=== PATIENT | female | born 1955 | race Two or more races ===

== ENCOUNTER → 2024-07-20 | Outpatient (CLI) | payer BC, SELFPAY ==
[2024-07-20 10:35] LABS: Collection Type, Urine Clean Catch
[2024-07-20 11:20] LABS: Basophils # (Auto) 0.1 Thou/mm3 (0.0-0.2); Basophils % (Auto) 1 % (0-2.5); Eosinophils % (Auto) 1 % (0-10); Hematocrit 39.2 % (36.0-46.0); Hemoglobin 13.2 g/dL (12.0-16.0); Immature Granulocytes % (Auto) 0 % (0-0); Immature Granulocytes Auto 0.01 Thou/mm3 (0.00-0.00); Lymphocytes # (Auto) 2.7 Thou/mm3 (1.0-4.8); Lymphocytes % (Auto) 54 % (10-50); Mean Corpuscular HGB Conc 33.7 g/dl (31.0-37.0); Mean Corpuscular Hemoglobin 28.4 pg (25.0-35.0); Mean Corpuscular Volume 85 fL (80-100); Monocytes # (Auto) 0.4 Thou/mm3 (0.0-0.8); Monocytes % (Auto) 7 % (0-12); Neutrophils # (Auto) 1.8 Thou/mm3 (1.8-7.7); Neutrophils % (Auto) 37 % (37-80); Nucleated Red Blood Cell % 0 /100 WBC (0); Platelet Count 275 Thou/mm3 (140-440); RDW Standard Deviation 38.9 fL (36.4-46.3); Red Blood Count 4.64 Miln/mm3 (4.00-5.20)
[2024-07-20 11:34] LABS: Glucose Estimated Average 111 mg/dL (80-131); Hemoglobin A1C 5.5 % Hgb (4.8-6.0)
[2024-07-20 11:41] LABS: Vitamin B12 1252 pg/mL (211-911)
[2024-07-20 11:42] LABS: Alanine Aminotransferase 15 U/L (10-49); Albumin, Serum 4.5 gm/dL (3.4-4.8); Albumin/Globulin Ratio 1.8 (1.2-2.2); Alkaline Phosphatase 88 U/L (46-116); Anion Gap 5 (7-16); Aspartate Amino Transferase 18 U/L (0-34); BUN/Creatinine Ratio 23 Ratio (12-20); Bilirubin,Total 0.6 mg/dL (0.3-1.2); Blood Urea Nitrogen 18 mg/dL (9-23); Calcium 9.8 mg/dL (8.3-10.6); Calcium (Corrected) 9.8 mg/dL (8.5-10.1); Carbon Dioxide 27.6 mMol/L (20.0-31.0); Cardiac Risk Estimate 4.6 RATIO (3.7-5.6); Chloride 106 mMol/L (98-107); Cholesterol 224 mg/dL (132-200); Creatinine (Component) 0.8 mg/dL (0.6-1.3); Globulin 2.5 gm/dL (2.3-3.5); Glucose 99 mg/dL (74-106); HDL Cholesterol 49 mg/dL (40-60); LDL Cholesterol,Calculated 150 mg/dL (0-130); Magnesium 2.1 mg/dL (1.6-2.6); Osmolality,Calculated 279 (275-295); Sodium 139 mMol/L (136-145); Thyroid Stimulating Hormone 2.73 uIU/mL (0.55-4.78); Triglycerides 127 mg/dL (30-150); eGFR > 60 See Note
[2024-07-20 12:49] LABS: Bilirubin,Urine Negative (Negative); Blood,Urine Negative (Negative); Clarity,Urine Clear (Clear/Hazy); Color,Urine Colorless (Lt Yel-Yel); Culture Indicated,Urine Not Indicated; Glucose, Urine Negative (Negative); Ketones,Urine Negative (Negative); Leukocyte Esterase,Urine Positive (Negative); Nitrite,Urine Negative (Negative); Protein,Urine Negative (Neg - Trace); RBC,Urine 1 /hpf (0-3); Specific Gravity,Urine 1.011 (1.001-1.035); Squamous Epithelial Cell,Urine < 1 /hpf (0-5); Urobilinogen,Urine Negative mg/dL (0.0-1.0); WBC,Urine 4 /hpf (0-5)
== END | disposition home or self-care (01) ==
LOC: COPL 09:28
PROVIDERS: PCP Registered Nurse; Referring Provider Registered Nurse; Visit Provider Registered Nurse
DX: Z00.00 Encounter for general adult medical examination without abnormal findings (principal); E78.2 Mixed hyperlipidemia; M81.0 Age-related osteoporosis without current pathological fracture
CPT/HCPCS: 36415; 80053; 80061; 81001; 82306; 82607; 83036; 83735; 84443; 85025

== ENCOUNTER 2024-11-01 02:58 | Emergency (ER) | payer BC, SELFPAY ==
[2024-11-01 03:00] VITALS: BMI 23.2
[2024-11-01 03:08] VITALS: BP 191/92; PULSE 66; RESP 19; TEMP 36.9; O2SAT 98
--- NOTE | 2024-11-01 03:32 | PD.EDRME ---
Rapid Medical Screening Exam RME Arrival date/time: 11/01/24 02:58 69-year-old female with past medical history of chronic back pain on tramadol presents emergency department complaining of thoracic back pain for several days. Chief Complaint: Back Pain/Injury Time Seen by Provider: 11/01/24 03:13 Vital signs: Vital Signs Temperature 98.4 F 11/01/24 03:08 Pulse Rate 66 11/01/24 03:08 Respiratory Rate 19 11/01/24 03:08 Blood Pressure 191/92 H 11/01/24 03:08 Pulse Oximetry (%) 98 11/01/24 03:08 Oxygen Delivery Method Room Air 11/01/24 03:08 Vital signs reviewed by provider: Yes
[2024-11-01] MEDS: CYCLObenzaPRINE 5 MG TABLET PO (03:41)
[2024-11-01] MEDS: KETOROLAC INJ 60 MG/2 ML VIAL 30 MG IM (03:42)
[2024-11-01 03:49] LABS: Collection Type, Urine Clean Catch
[2024-11-01 03:52] LABS: Bilirubin,Urine Negative (Negative); Blood,Urine Negative (Negative); Clarity,Urine Clear (Clear/Hazy); Color,Urine Colorless (Lt Yel-Yel); Culture Indicated,Urine Not Indicated; Glucose, Urine Negative (Negative); Ketones,Urine Negative (Negative); Leukocyte Esterase,Urine Positive (Negative); Nitrite,Urine Negative (Negative); Protein,Urine Negative (Neg - Trace); RBC,Urine 1 /hpf (0-3); Specific Gravity,Urine 1.008 (1.001-1.035); Squamous Epithelial Cell,Urine < 1 /hpf (0-5); Urobilinogen,Urine Negative mg/dL (0.0-1.0); WBC,Urine 7 /hpf (0-5)
--- NOTE | 2024-11-01 04:31 | PD.EDBACK ---
ED Back Injury Pain RME/HPI General Chief Complaint: Back Pain/Injury Stated Complaint: back pain Time Seen by Provider: 11/01/24 03:13 Arrival date/time: 11/01/24 02:58 69-year-old female with past medical history of chronic back pain on tramadol presents emergency department complaining of thoracic back pain for several days. Patient denies any recent trauma, fall, or injury. Patient also denies any fever, chills, bowel or bladder dysfunction, saddle anesthesia, or any other associated symptom. Limitations: no limitations RME / HPI RME / HPI Narrative: 11/01/24 02:58 69-year-old female with past medical history of chronic back pain on tramadol presents emergency department complaining of thoracic back pain for several days. Related Data Home Medications ?Medication ?Instructions ?Recorded ?Confirmed tramadol 50 mg tablet 50 mg PO QID PRN Pain, Moderate 10/22/18 10/17/23 Previous Rx's ?Medication ?Instructions ?Recorded cyclobenzaprine 10 mg tablet 10 mg PO TID PRN muscle spasm #10 11/01/24 tabs ibuprofen 600 mg tablet 600 mg PO Q8H PRN pain #20 tabs 11/01/24 Allergies Allergy/AdvReac Type Severity Reaction Status Date / Time No Known Allergies Allergy Verified 10/17/23 11:22 Review of Systems Review of Systems Systems Reviewed: All systems reviewed, normal except as documented Constitutional Constitutional: Reports system reviewed and no additional complaints, except as documented, Denies body ache(s), Denies chills and Denies fever(s) Eyes Eyes: Reports system reviewed and no additional complaints, except as documented and Denies change in vision ENT Ears, Nose, Mouth, and Throat: Reports system reviewed and no additional complaints, except as documented, Denies disequilibrium, Denies dizziness, Denies sore throat and Denies vertigo Cardiovascular Cardiovascular: Reports system reviewed and no additional complaints, except as documented, Denies chest pain and Denies dyspnea Respiratory Respiratory: Reports system reviewed and no additional complaints, except as documented, Denies chest congestion, Denies cough and Denies dyspnea Gastrointestinal Gastrointestinal: Reports system reviewed and no additional complaints, except as documented, Denies abdominal pain, Denies nausea and Denies vomiting Musculoskeletal Musculoskeletal: Reports system reviewed and no additional complaints, except as documented, Denies abnormal gait, Denies arthralgias and Reports back pain Integumentary/Breasts Skin/Breast: Reports system reviewed and no additional complaints, except as documented, Denies erythema, Denies rash and Denies wounds Neurologic Neurologic: Reports system reviewed and no additional complaints, except as documented, Denies abnormal gait, Denies disequilibrium, Denies dizziness and Denies vertigo Past Medical History Past Medical History NEUROLOGIC: Positive Neurological Disorders and Migraine (hx of migraines); Negative Seizures CARDIAC: Positive Cardiac Disorders, Hypercholesterolemia and Hypertension; Negative Congestive Heart Failure RESPIRATORY: Positive Sleep Apnea; Negative Chronic Obstructive Pulmonary Disease (COPD) or Asthma GASTROINTESTINAL: Positive Gastrointestinal Disorders and Gastroesophageal Reflux Disease GENITOURINARY: Positive Genitourinary Disorders (over active bladder); Negative Renal Disease REPRODUCTIVE: Positive Previous Pregnancies MUSCULOSKELETAL: Positive Musculoskeletal Disorders, Arthritis and Degenerative Disk Disease ENDOCRINE: Negative Endocrine Disorders, Diabetes Mellitus Type 1 or Diabetes Mellitus Type 2 HEMATOLOGIC: Negative Blood Disorders, Anemia or Sickle Cell Disease PSYCHO/SOCIAL: Positive Depression and Anxiety OTHER HISTORY: Negative Hospitalization, Falls, Blood Transfusions, Anesthesia Reactions or Cancer Surgical History SURGICAL: Positive Tubal Ligation Social History SMOKING STATUS: Never smoker SUBSTANCE USE: does not use ED Exam General Limitations: Present no limitations General appearance: Present alert and in no apparent distress Head Head exam: Present atraumatic Eye Eye exam: Present normal appearance, PERRL and EOMI ENT ENT exam: Present normal exam, normal oropharynx and mucous membranes moist Neck Neck exam: Present normal inspection, full ROM and trachea midline Chest Chest inspection: Present normal inspection and symmetric chest wall rise Respiratory Respiratory exam: Present normal lung sounds bilaterally Cardiovascular Cardiovascular exam: Present regular rate, normal rhythm and normal heart sounds Abdominal Exam Abdominal exam: Present soft and normal bowel sounds Extremities Exam Extremities exam: Present normal inspection and full ROM Back Exam Back exam: Present normal inspection and full ROM; Absent CVA tenderness (R) or CVA tenderness (L) Neurological Exam Neurological exam: Present alert, oriented X3 and CN II-XII intact Psychiatric Psychiatric exam: Present normal affect and normal mood Skin Skin exam: Present warm, dry, intact and normal color Course Quality Measures none Orders Category Date Time Status Urinalysis, C/S if Indicated Stat Lab 11/01/24 03:45 Completed CYCLObenzaPRINE [Flexeril] Med 11/01/24 03:32 Discontinued 5 mg PO X1 ONE Ketorolac Inj [Toradol Inj] Med 11/01/24 03:32 Discontinued 30 mg IM X1 ONE hydrALAZINE HCL [Apresoline] Med 11/01/24 04:48 Discontinued 25 mg PO X1 ONE Vital Signs Vital signs: Vital Signs Temperature 98.4 F 11/01/24 03:08 Pulse Rate 66 11/01/24 03:08 Respiratory Rate 19 11/01/24 03:08 Blood Pressure 191/92 H 11/01/24 03:08 Pulse Oximetry (%) 98 11/01/24 03:08 Oxygen Delivery Method Room Air 11/01/24 03:08 98% room air within normal limits. Back Pain / Injury MDM Narrative MDM Narrative:: 69-year-old female with past medical history of chronic back pain on tramadol presents emergency department complaining of thoracic back pain for several days. Patient denies any recent trauma, fall, or injury. Patient also denies any fever, chills, bowel or bladder dysfunction, saddle anesthesia, or any other associated symptom. Patient denies any flank pain with no costovertebral tenderness and negative Coto's punch. Urinalysis unremarkable. Patient reported significant improvement in pain after given Toradol and muscle relaxer. Patient has full active range of motion to bilateral upper and lower extremities. Patient ambulatory with steady gait. Patient stable for discharge struck to follow-up with primary care provider request referral to physical therapy or MRI of spine if symptoms persist. Patient data External records reviewed:: [facility] previous records Clinical information provided by:: patient Social determinants that could affect healthcare access:: none Patient has the following chronic illnesses:: See chart How is presenting disease/condition affected by chronic disease/condition?: exacerbated by Evaluation data The following diagnostics were reviewed and interpreted by me:: lab results Lab and/or radiology exams considered but not ordered:: Ordered Interpretation Summary: Interpreted by me Medications / Prescriptions Medications or Prescriptions considered but not ordered:: Ordered Medication administrations:: Medication Administration History Discontinued Medications Cyclobenzaprine HCl (Cyclobenzaprine 5 Mg Tablet) 5 mg PO X1 ONE Stop: 11/01/24 03:33 Last Admin: 11/01/24 03:41 Dose: 5 mg Documented By: EF Hydralazine HCl (Hydralazine Hcl 25 Mg Tablet) 25 mg PO X1 ONE Stop: 11/01/24 04:49 Last Admin: 11/01/24 04:53 Dose: 25 mg Documented By: EF Ketorolac Tromethamine (Ketorolac Inj 60 Mg/2 Ml Vial) 30 mg IM X1 ONE Stop: 11/01/24 03:33 Last Admin: 11/01/24 03:42 Dose: 30 mg Documented By: EF Given Consultations Consultation(s) initiated? (list below): No Diagnosis Differential diagnosis back pain/injury: lumbar radiculopathy, sciatica, strain of lumbar region, renal colic, pyelonephritis, thoracic back pain, AAA and discitis Most likely diagnosis given after review of the tests above:: Thoracic back pain Admission Indicated Admission indicated?: not indicated Admission Request Was there a request for admission?: No Disposition Plan Disposition Plan: Discharge Discharge Attestation Discharge Attestation: The patient and all family members were given an opportunity to ask questions and understood the discharge instructions. Discharge instructions specifically effects, indications for sooner follow up or return to the emergency department, and the expected course of current diagnosis. Patient condition: Stable Discharge Plan Plan Patient Disposition: HOME (Self Care) Disposition Comment: Stable Prescriptions/Referrals Prescriptions/Med Rec: New cyclobenzaprine 10 mg tablet 10 mg PO TID PRN (Reason: muscle spasm) Qty: 10 0RF ibuprofen 600 mg tablet 600 mg PO Q8H PRN (Reason: pain) Qty: 20 0RF No Action tramadol 50 mg Tablet 50 mg PO QID PRN (Reason: Pain, Moderate) Referrals: Gaby Lanier MD [Primary Care Provider] - In 1 week Problem List Clinical Impression: Thoracic back pain Patient/Caregiver Discharge Instructions Discharge Activity: activity as tolerated Education Materials: Anatomy of a Normal Spine, Back Basics: A Healthy Spine Additional Instructions: Avoid using tramadol while taking the muscle relaxer. Take ibuprofen and muscle relaxer as prescribed instead. Follow-up with primary care provider in 2 to 3 days and request referral physical therapy or MRI of spine if symptoms persist. Return to emergency department for any worsening symptoms or as needed. Print Language: [place] Stand Alone Forms: Yamila Award Info., Patient Portal Info Letter JOSR/GENARO Supervising Physician JOSR/GENARO Supervising Physician: Dr. Mroaes
[2024-11-01 04:53] VITALS: BP 209/91; PULSE 66
[2024-11-01] MEDS: hydrALAZINE HCL 25 MG TABLET PO (04:53)
[2024-11-01 05:19] VITALS: BP 162/70; PULSE 60; RESP 18; TEMP 37; O2SAT 97
== END 2024-11-01 05:26 | disposition home or self-care (01) ==
PROVIDERS: Emergency Provider Emergency Medicine; PCP Family Medicine
DX: M54.6 Pain in thoracic spine (principal); I10 Essential (primary) hypertension
CPT/HCPCS: 81001; 96372; 99283; J1885; A9270

== ENCOUNTER 2024-11-03 05:30 | Emergency (ER) | payer BC, SELFPAY ==
[2024-11-03 05:31] VITALS: BMI 23.2
--- NOTE | 2024-11-03 05:33 | EKG_ITS ---
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
--- NOTE | 2024-11-03 05:42 | XR_ITS ---
Examination: PA chest single view TECHNIQUE: Upright PA chest single view Exam date and time: November 03, 2024 0550 hours Comparison October 20, 2018 INDICATIONS: Chest pain several days FINDINGS: Normal heart size Mild accentuation basilar bronchovascular markings No pulmonary edema or pneumonia Moderate osteopenia IMPRESSION: Basilar bronchitis pattern
--- NOTE | 2024-11-03 05:43 | PD.EDRME ---
Rapid Medical Screening Exam E Arrival date/time: 11/03/24 05:30 69F with no significant PMH presents to ED with several days of worse than usual upper back pain w/o fall/trauma. Patient was here 2 days ago for this and states pain meds helped for about 24 hours, but then came back. Chief Complaint: Back Pain/Injury
[2024-11-03 05:55] VITALS: BP 208/100; PULSE 69; RESP 16; TEMP 36.7; O2SAT 97
[2024-11-03] MEDS: HYDROcodone/APAP 5/325 TABLET 1 TAB PO (06:04)
[2024-11-03 06:43] VITALS: BP 208/100; PULSE 69
[2024-11-03] MEDS: cloNIDine HCL 0.1 MG TABLET 0.2 MG PO (06:43)
[2024-11-03 07:06] LABS: Basophils # (Auto) 0.1 Thou/mm3 (0.0-0.2); Basophils % (Auto) 1 % (0-2.5); Eosinophils % (Auto) 1 % (0-10); Hematocrit 40.6 % (36.0-46.0); Hemoglobin 13.8 g/dL (12.0-16.0); Immature Granulocytes % (Auto) 0 % (0-0); Immature Granulocytes Auto 0.01 Thou/mm3 (0.00-0.00); Lymphocytes # (Auto) 2.8 Thou/mm3 (1.0-4.8); Lymphocytes % (Auto) 48 % (10-50); Mean Corpuscular Hemoglobin 28.6 pg (25.0-35.0); Mean Corpuscular Volume 84 fL (80-100); Monocytes # (Auto) 0.4 Thou/mm3 (0.0-0.8); Monocytes % (Auto) 7 % (0-12); Neutrophils # (Auto) 2.5 Thou/mm3 (1.8-7.7); Neutrophils % (Auto) 43 % (37-80); Nucleated Red Blood Cell % 0 /100 WBC (0); Platelet Count 250 Thou/mm3 (140-440); RDW Standard Deviation 38.1 fL (36.4-46.3); Red Blood Count 4.82 Miln/mm3 (4.00-5.20); White Blood Count 5.8 Thou/mm3 (3.6-11.0)
[2024-11-03 07:29] LABS: Alanine Aminotransferase 21 U/L (10-49); Albumin, Serum 4.8 gm/dL (3.4-4.8); Albumin/Globulin Ratio 1.6 (1.2-2.2); Alkaline Phosphatase 98 U/L (46-116); Anion Gap 8 (7-16); Aspartate Amino Transferase 23 U/L (0-34); BUN/Creatinine Ratio 19 Ratio (12-20); Bilirubin,Total 0.4 mg/dL (0.3-1.2); Blood Urea Nitrogen 15 mg/dL (9-23); Calcium 10.2 mg/dL (8.3-10.6); Calcium (Corrected) 10.2 mg/dL (8.5-10.1); Carbon Dioxide 28.4 mMol/L (20.0-31.0); Chloride 108 mMol/L (98-107); Creatinine (Component) 0.8 mg/dL (0.6-1.3); Estimated Creatinine Clearance 52.5 mL/min (>60); Glucose 118 mg/dL (74-106); Osmolality,Calculated 288 (275-295); Potassium 4.2 mMol/L (3.4-5.1); Sodium 144 mMol/L (136-145); Total Protein 7.8 gm/dL (5.7-8.2); Troponin I < 0.002 ng/mL (0.0-0.045); eGFR > 60 See Note
--- NOTE | 2024-11-03 07:48 | EDNOTE_ITS ---
ED Back Injury Pain RME/HPI General Chief Complaint: Back Pain/Injury Stated Complaint: BACK PAIN Time Seen by Provider: 11/03/24 06:21 Source: patient Arrival date/time: 11/03/24 05:30 69-year-old female with a history of chronic back pain presents to the emergency room with a chief complaint of upper back pain x 1 day. Patient denies any fall or trauma. Mode of arrival: ambulatory Limitations: no limitations RME / HPI RME / HPI Narrative: 11/03/24 05:30 69F with no significant PMH presents to ED with several days of worse than usual upper back pain w/o fall/trauma. Patient was here 2 days ago for this and states pain meds helped for about 24 hours, but then came back. Related Data Home Medications ?Medication ?Instructions ?Recorded ?Confirmed tramadol 50 mg tablet 50 mg PO QID PRN Pain, Moder ate 10/22/18 10/17/23 Previous Rx's ?Medication ?Instructions ?Recorded cyclobenzaprine 10 mg tablet 10 mg PO TID PRN muscle s pasm #10 11/01/24 tabs ibuprofen 600 mg tablet 600 mg PO Q8H PRN pain #20 t abs 11/01/24 Allergies Allergy/AdvReac Type Severity Reaction Status Date / Time No Known Allergies Allergy Verified 10/17/23 11:22 Review of Systems Review of Systems Systems Reviewed: All systems reviewed, normal except as documented Constitutional Constitutional: Reports system reviewed and no additional complaints, except as documented, Denies fatigue, Denies fever(s), Denies headache(s) and Denies weakness Eyes Eyes: Reports system reviewed and no additional complaints, except as documented, Denies blurry vision and Denies change in vision ENT Ears, Nose, Mouth, and Throat: Reports system reviewed and no additional complaints, except as documented, Denies otalgia, Denies headache(s), Denies nasal congestion, Denies throat swelling and Denies vertigo Cardiovascular Cardiovascular: Reports system reviewed and no additional complaints, except as documented, Denies chest pain, Denies dyspnea and Denies dyspnea on exertion Respiratory Respiratory: Reports system reviewed and no additional complaints, except as documented, Denies chest congestion, Denies cough, Denies dyspnea, Denies dyspnea on exertion and Denies wheezing Gastrointestinal Gastrointestinal: Reports system reviewed and no additional complaints, except as documented, Denies abdominal pain, Denies cramping, Denies nausea and Denies vomiting Genitourinary Genitourinary: Reports system reviewed and no additional complaints, except as documented Musculoskeletal Musculoskeletal: Reports system reviewed and no additional complaints, except as documented, Reports arthralgias and Reports back pain Integumentary/Breasts Skin/Breast: Reports system reviewed and no additional complaints, except as documented and Denies wounds Neurologic Neurologic: Reports system reviewed and no additional complaints, except as documented, Denies confusion, Denies headache(s), Denies lack of coordination, Denies vertigo and Denies weakness Psychiatric Psychiatric: Reports system reviewed and no additional complaints, except as documented, Denies anxiety, Denies confusion, Denies depression, Denies paranoia, Denies suicidal ideation and Denies tactile hallucinations Endocrine Endocrine: Reports system reviewed and no additional complaints, except as documented and Denies fatigue Hematologic/Lymphatic Hematologic/Lymphatic: Reports system reviewed and no additional complaints, except as documented and Denies lymphadenopathy Allergic/Immunologic Allergic/Immunologic: Reports system reviewed and no additional complaints, except as documented, Denies throat swelling, Denies urticaria and Denies wheezing Past Medical History Past Medical History NEUROLOGIC: Positive Neurological Disorders and Migraine (hx of migraines); Negative Seizures CARDIAC: Positive Cardiac Disorders, Hypercholesterolemia and Hypertension; Negative Congestive Heart Failure RESPIRATORY: Positive Sleep Apnea; Negative Chronic Obstructive Pulmonary Disease (COPD) or Asthma GASTROINTESTINAL: Positive Gastrointestinal Disorders and Gastroesophageal Reflux Disease GENITOURINARY: Positive Genitourinary Disorders (over active bladder); Negative Renal Disease REPRODUCTIVE: Positive Previous Pregnancies MUSCULOSKELETAL: Positive Musculoskeletal Disorders, Arthritis and Degenerative Disk Disease ENDOCRINE: Negative Endocrine Disorders, Diabetes Mellitus Type 1 or Diabetes Mellitus Type 2 HEMATOLOGIC: Negative Blood Disorders, Anemia or Sickle Cell Disease PSYCHO/SOCIAL: Positive Depression and Anxiety OTHER HISTORY: Negative Hospitalization, Falls, Blood Transfusions, Anesthesia Reactions or Cancer Surgical History SURGICAL: Positive Tubal Ligation Social History SMOKING STATUS: Never smoker SUBSTANCE USE: does not use ED Exam General Limitations: Present no limitations General appearance: Present alert and in no apparent distress Head Head exam: Present atraumatic Eye Eye exam: Present normal appearance, PERRL and EOMI ENT ENT exam: Present normal exam, normal oropharynx and mucous membranes moist Neck Neck exam: Present normal inspection, full ROM and trachea midline Chest Chest inspection: Present normal inspection and symmetric chest wall rise Respiratory Respiratory exam: Present normal lung sounds bilaterally Cardiovascular Cardiovascular exam: Present regular rate, normal rhythm and normal heart sounds Abdominal Exam Abdominal exam: Present soft and normal bowel sounds Extremities Exam Extremities exam: Present normal inspection and full ROM Back Exam Back exam: Present normal inspection, full ROM, tenderness and vertebral tenderness Back 1 view image: 2 1. Tenderness Neurological Exam Neurological exam: Present alert, oriented X3, CN II-XII intact, normal gait and reflexes normal Expanded Neurological Exam Patient oriented to: Present person, place and time Speech: Present fluid speech Cerebellar function: Present normal gait Motor strength - LUE: 5/5 Motor strength - RUE: 5/5 Motor strength - LLE: 5/5 Motor strength - RLE: 5/5 Coma scale eye opening: spontaneous Coma scale motor response: obeys commands Coma scale verbal response: oriented Coma scale total: 15 Psychiatric Psychiatric exam: Present normal affect and normal mood Skin Skin exam: Present warm, dry, intact and normal color Course Quality Measures none Orders Category Date Time Status EKG (ED ONLY) *Do not use* NOW Care 11/03/24 05:33 Completed EKG (ED Only) Stat Exams 11/03/24 05:33 Draft XR chest 1V portable Stat Exams 11/03/24 05:42 Taken CBC Stat Lab 11/03/24 06:55 Completed Comprehensive Metabolic Panel Stat Lab 11/03/24 06:55 Completed Troponin I Stat Lab 11/03/24 06:55 Completed HYDROcodone*/APAP 5/325 [Hegins 5/325] Med 11/03/24 05:42 Discontinued 1 tab PO X1 ONE cloNIDine HCL [Catapres] Med 11/03/24 06:33 Discontinued 0.2 mg PO X1 ONE Vital Signs Vital signs: Vital Signs Temperature 98.0 F 11/03/24 05:55 Pulse Rate 69 11/03/24 05:55 Respiratory Rate 16 11/03/24 05:55 Blood Pressure 208/100 H 11/03/24 05:55 Pulse Oximetry (%) 97 11/03/24 05:55 Oxygen Delivery Method Room Air 11/03/24 05:55 O2 saturation 97% on room air Back Pain / Injury MDM Narrative MDM Narrative:: 69-year-old female with a history of chronic back pain presents to the emergency room with a chief complaint of upper back pain x 1 day. Patient denies any fall or trauma. Patient is hemodynamically stable and in no apparent distress. Patient was hypertensive during initial evaluation. Medication was given and blood pressure was within normal limits prior to discharge. Physical examination shows tenderness with palpation to the thoracic area of her spine. The patient states it is a constant 3 out of 10 pain. Patient states she has a history of arthritis and was told by her primary care provider it could be degenerative disc disease. Patient states she will follow-up with her primary care provider for further management of her back pain. At this time the patient denies any numbness to the lower extremities. The patient does not have any saddle anesthesia, and there is no loss of bowel or bladder function. Patient was reevaluated in 1 hour after given pain medication with significant improvement to her symptoms. Patient was discharged and educated to follow-up with primary care provider and return to the emergency room for any evidence of worsening signs or symptoms Patient data External records reviewed:: [facility] previous records Clinical information provided by:: patient Social determinants that could affect healthcare access:: none Patient has the following chronic illnesses:: Arthritis How is presenting disease/condition affected by chronic disease/condition?: e xacerbated by Evaluation data The following diagnostics were reviewed and interpreted by me:: lab results and radiology exam(s) Lab and/or radiology exams considered but not ordered:: Labs and radiology exams considered and ordered Interpretation Summary: N/A Medications / Prescriptions Medications or Prescriptions considered but not ordered:: Medication given Medication administrations:: Medication Administration History Discontinued Medications Hydrocodone Bitart/Acetaminophen (Hydrocodone/Apap 5/325 Tablet) 1 tab PO X1 ONE Stop: 11/03/24 05:43 Last Admin: 11/03/24 06:04 Dose: 1 tab Documented By: NUNO Clonidine (Clonidine Hcl 0.1 Mg Tablet) 0.2 mg PO X1 ONE Stop: 11/03/24 06:34 Last Admin: 11/03/24 06:43 Dose: 0.2 mg Documented By: NUNO Medication given Consultations Consultation(s) initiated? (list below): No Diagnosis Differential diagnosis back pain/injury: lumbar radiculopathy, strain of lumbar region, thoracic back pain and discitis Most likely diagnosis given after review of the tests above:: Thoracic back pain Admission Indicated Admission indicated?: not indicated Admission Request Was there a request for admission?: No Disposition Plan Disposition Plan: Discharge Discharge Attestation Discharge Attestation: The patient and all family members were given an opportunity to ask questions and understood the discharge instructions. Discharge instructions specifically effects, indications for sooner follow up or return to the emergency department, and the expected course of current diagnosis. Patient condition: Stable Discharge Plan Plan Patient Disposition: HOME (Self Care) Disposition Comment: Stable Prescriptions/Referrals Prescriptions/Med Rec: No Action tramadol 50 mg Tablet 50 mg PO QID PRN (Reason: Pain, Moderate) cyclobenzaprine 10 mg tablet 10 mg PO TID PRN (Reason: muscle spasm) Qty: 10 0RF ibuprofen 600 mg tablet 600 mg PO Q8H PRN (Reason: pain) Qty: 20 0RF Referrals: Tom Vega MD [Primary Care Provider] - In 1 week Problem List Clinical Impression: Thoracic back pain Patient/Caregiver Discharge Instructions Education Materials: ED Back Care Tips, ED Back Pain (Acute or Chronic) Additional Instructions: Please follow-up with your primary care provider in the next 24 to 48 hours. For any evidence of worsening signs or symptoms please return to the emergency room immediately If symptoms persist you will need an outpatient MRI for further management of your back pain. Print Language: Hebrew Stand Alone Forms: Yamila Award Info., Patient Portal Info Letter PA/RECORDS MANAGEMENT TECHNICIAN Supervising Physician JOSR/GENARO Supervising Physician: Dr. Vega
[2024-11-03 08:00] VITALS: BP 109/68; PULSE 57; RESP 16; TEMP 36.6; O2SAT 99
== END 2024-11-03 08:06 | disposition home or self-care (01) ==
PROVIDERS: Physician Assistant; Emergency Provider Emergency Medicine; PCP Emergency Medicine
DX: M54.6 Pain in thoracic spine (principal); R07.9 Chest pain, unspecified
CPT/HCPCS: 36415; 71045; 80053; 84484; 85025; 93005; 99283; A9270

== ENCOUNTER → 2025-01-17 | Outpatient (CLI) | payer BC, SELFPAY ==
[2025-01-17 16:28] LABS: Basophils # (Auto) 0.1 Thou/mm3 (0.0-0.2); Basophils % (Auto) 1 % (0-2.5); Eosinophils # (Auto) 0.1 Thou/mm3 (0.0-0.5); Eosinophils % (Auto) 1 % (0-10); Hematocrit 38.6 % (36.0-46.0); Immature Granulocytes % (Auto) 0 % (0-0); Immature Granulocytes Auto 0.01 Thou/mm3 (0.00-0.00); Lymphocytes # (Auto) 3.3 Thou/mm3 (1.0-4.8); Lymphocytes % (Auto) 55 % (10-50); Mean Corpuscular HGB Conc 33.7 g/dl (31.0-37.0); Mean Corpuscular Hemoglobin 28.9 pg (25.0-35.0); Mean Corpuscular Volume 86 fL (80-100); Monocytes # (Auto) 0.5 Thou/mm3 (0.0-0.8); Monocytes % (Auto) 9 % (0-12); Neutrophils % (Auto) 34 % (37-80); Nucleated Red Blood Cell % 0 /100 WBC (0); Platelet Count 269 Thou/mm3 (140-440); RDW Standard Deviation 39.2 fL (36.4-46.3)
[2025-01-17 16:43] LABS: C-Reactive Protein < 0.5 mg/dL (0.0-0.9)
[2025-01-17 17:47] LABS: Sed Rate (ESR) 2 mm/hr (0-30)
== END | disposition home or self-care (01) ==
LOC: COPL 15:42
PROVIDERS: PCP Physician Assistant; Referring Provider Physician Assistant; Visit Provider Physician Assistant
DX: M13.0 Polyarthritis, unspecified (principal)
CPT/HCPCS: 36415; 85025; 85652; 86140

== ENCOUNTER → 2025-02-18 | Outpatient (CLI) | payer BC, SELFPAY ==
[2025-02-18 17:02] LABS: Alanine Aminotransferase 14 U/L (10-49); Albumin, Serum 4.4 gm/dL (3.4-4.8); Albumin/Globulin Ratio 1.8 (1.2-2.2); Alkaline Phosphatase 88 U/L (46-116); Anion Gap 5 (7-16); Aspartate Amino Transferase 19 U/L (0-34); BUN/Creatinine Ratio 20 Ratio (12-20); Bilirubin,Total 0.4 mg/dL (0.3-1.2); Blood Urea Nitrogen 16 mg/dL (9-23); Calcium 9.4 mg/dL (8.3-10.6); Calcium (Corrected) 9.4 mg/dL (8.5-10.1); Carbon Dioxide 28.5 mMol/L (20.0-31.0); Chloride 107 mMol/L (98-107); Creatinine (Component) 0.8 mg/dL (0.6-1.3); Globulin 2.4 gm/dL (2.3-3.5); Glucose 118 mg/dL (74-106); Osmolality,Calculated 281 (275-295); Sodium 140 mMol/L (136-145); Total Protein 6.8 gm/dL (5.7-8.2); eGFR > 60 See Note
== END | disposition home or self-care (01) ==
PROVIDERS: PCP Registered Nurse; Referring Provider Internal Medicine; Visit Provider Internal Medicine
DX: F32.A Depression, unspecified (principal); F41.9 Anxiety disorder, unspecified; M25.50 Pain in unspecified joint; M47.812 Spondylosis without myelopathy or radiculopathy, cervical region; M51.362 Other intervertebral disc degeneration, lumbar region with discogenic back pain and lower extremity pain; M85.80 Other specified disorders of bone density and structure, unspecified site; M85.89 Other specified disorders of bone density and structure, multiple sites; M85.9 Disorder of bone density and structure, unspecified; Z13.820 Encounter for screening for osteoporosis; Z78.0 Asymptomatic menopausal state
CPT/HCPCS: 36415; 80053

== ENCOUNTER → 2025-06-13 | Outpatient (CLI) | payer BC, SELFPAY ==
--- NOTE | 2025-06-13 13:45 | XR_ITS ---
Examination: Screening digital mammography, bilateral Computer aided detection 3-D breast Tomosynthesis, bilateral Date and time of exam: 06/13/2025, 1:43 p.m. Comparisons: June 2019 through March 2023 Indications: Screening Technique: Nonmagnified MLO, CC views of the breasts to been obtained, reconstructed from 3-D Tomosynthesis images. R2 computer aided detection program utilized for evaluation of suspicious masses and/or abnormal calcifications. 3-D Tomosynthesis images obtained. Technologist: Findings: There are scattered areas of fibroglandular density. No evidence of abnormal masses or suspicious calcifications. Impression: BI-RADS category 1: Negative findings (within normal) Recommend 1 year follow-up mammogram
== END | disposition home or self-care (01) ==
LOC: CDIM 13:36
PROVIDERS: PCP Registered Nurse; Referring Provider Registered Nurse; Visit Provider Registered Nurse
DX: Z12.31 Encounter for screening mammogram for malignant neoplasm of breast (principal); R92.313 Mammographic fatty tissue density, bilateral breasts
CPT/HCPCS: 77063; 77067

== ENCOUNTER → 2025-07-25 | Outpatient (CLI) | payer BC, SELFPAY ==
[2025-07-25 15:59] LABS: Alanine Aminotransferase 14 U/L (10-49); Albumin, Serum 4.6 gm/dL (3.4-4.8); Albumin/Globulin Ratio 1.8 (1.2-2.2); Alkaline Phosphatase 79 U/L (46-116); Anion Gap 9 (7-16); Aspartate Amino Transferase 20 U/L (0-34); BUN/Creatinine Ratio 20 Ratio (12-20); Bilirubin,Total 0.4 mg/dL (0.3-1.2); Blood Urea Nitrogen 16 mg/dL (9-23); Calcium 9.4 mg/dL (8.3-10.6); Calcium (Corrected) 9.4 mg/dL (8.5-10.1); Carbon Dioxide 29.2 mMol/L (20.0-31.0); Chloride 106 mMol/L (98-107); Creatinine (Component) 0.8 mg/dL (0.6-1.3); Globulin 2.5 gm/dL (2.3-3.5); Glucose 129 mg/dL (74-106); Osmolality,Calculated 290 (275-295); Potassium 4.2 mMol/L (3.4-5.1); Sodium 144 mMol/L (136-145); Total Protein 7.1 gm/dL (5.7-8.2); eGFR > 60 See Note
[2025-07-25 16:13] LABS: Vitamin D 25 Hydroxy Total 40.7 ng/mL (7.3-40.2)
== END | disposition home or self-care (01) ==
PROVIDERS: PCP Family Medicine
DX: F32.A Depression, unspecified (principal); F41.9 Anxiety disorder, unspecified; I10 Essential (primary) hypertension; M25.50 Pain in unspecified joint; M47.812 Spondylosis without myelopathy or radiculopathy, cervical region; M51.362 Other intervertebral disc degeneration, lumbar region with discogenic back pain and lower extremity pain; M85.80 Other specified disorders of bone density and structure, unspecified site; M85.89 Other specified disorders of bone density and structure, multiple sites; M85.9 Disorder of bone density and structure, unspecified; Z13.820 Encounter for screening for osteoporosis; Z78.0 Asymptomatic menopausal state
CPT/HCPCS: 36415; 80053; 82306

== ENCOUNTER → 2025-08-26 | Outpatient (CLI) | payer BC, SELFPAY ==
--- NOTE | 2025-08-26 | XR_ITS ---
EXAMINATION: Cervical spine, 5 views Technique: Cervical spine AP, AP odontoid, lateral, bilateral obliques, 5 views Exam date and time: August 26, 2025, 1429 hours INDICATIONS: Neck pain 5 years. FINDINGS: Moderate to advanced degenerative disc disease C4-C5, C5-C6, C6-C7 Intact odontoid No cervical fracture Moderate diffuse neural foraminal stenosis C4-C5, C5-C6, C6-C7, C7-T1 No fracture IMPRESSION: Moderate to advanced degenerative disc disease C4-C5, C5-C6, C6-C7
== END | disposition home or self-care (01) ==
LOC: SDIM 14:01
PROVIDERS: PCP Family Medicine
DX: M50.321 Other cervical disc degeneration at C4-C5 level (principal)
CPT/HCPCS: 72050